=== PATIENT | female | born 1985 | race Caucasian/White ===

== ENCOUNTER → 2020-04-21 | Outpatient (CLI) | payer BC ==
--- NOTE | 2020-04-21 09:23 | Diagnostic Imaging Report ---
EXAMINATION: MRI LT LOWER EXT JOINT W/O. TECHNIQUE: Multiplanar, multisequence MR imaging of the left knee was performed without contrast. COMPARISON: None available. INDICATION: Left knee pain. FINDINGS: MENISCI Medial meniscus: Truncation in the free edge of the posterior horn of the medial meniscus could represent prior partial meniscectomy versus some free edge tearing. Horizontal cleavage tear in the posterior horn of the medial meniscus is also present which can be an expected finding after debridement of a prior tear to stable margins. Lateral meniscus: Complex macerated tear in the anterior horn of the lateral meniscus near its root insertion. LIGAMENTS ACL: Intact. PCL: Intact. MCL: Intact. LCL: The lateral collateral ligamentous complex is intact. EXTENSOR MECHANISM The extensor mechanism is intact. CARTILAGE Medial compartment: Medial compartment articular cartilage is well preserved without focal high-grade chondromalacia. Lateral compartment: Partial thickness chondromalacia in the central weightbearing aspect of the lateral femoral condyle involves up to 75% of the thickness. This could have an unstable chondral flap present. 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 Trochlear cartilage is fairly well-preserved. BONE No fracture, stress fracture or osteonecrosis. SOFT TISSUE No knee effusion or Aranda's cyst. IMPRESSION: 1. Complex macerated tear in the anterior horn of the lateral meniscus near its root insertion. 2. There has either been a prior partial meniscectomy versus free edge tearing in the posterior horn of the medial meniscus. 3. Degenerative partial thickness articular cartilage loss in the lateral and patellofemoral compartments. There is a potential unstable flap/margin in the lateral tibial plateau. Dictated by: Dictated on workstation # [id number]
== END ==
LOC: RAD 07:51
DX: S83.282A Other tear of lateral meniscus, current injury, left knee, initial encounter (principal); M23.92 Unspecified internal derangement of left knee
CPT/HCPCS: 73721